=== PATIENT | female | born 1995 | race Caucasian/White ===

== ENCOUNTER 2022-08-08 05:56 | Inpatient (IN) | payer OTHER, MEDICAID, SELFPAY ==
[2022-08-08] VITALS (78 sets, daily range): BP systolic 76–113; BP diastolic 42–73; PULSE 70–127; RESP 16–18; TEMP 36.3–37.2; O2SAT 82–100; BMI 34.9
[2022-08-08 06:28] LABS: Basophil# 0.04 X10^3/uL; Basophil% 0.4 % (0-1); Eosinophil# 0.08 X10^3/uL; Eosinophils% 0.8 % (0-5); Hematocrit 38.6 % (37-47); Hemoglobin 12.2 g/dL (12.0-15.0); Lymphocyte % 21.7 % (19-41); Mean Corp Hgb Conc 31.6 g/dL (32-36); Mean Corpuscular Hgb 27.1 pg (27.0-32.0); Mean Corpuscular Volume 85.8 fL (81-99); Monocyte# 0.69 X10^3/uL; Monocyte% 6.8 % (0-10); NRBC Flagged by Analyzer 0 % (0-5); Neutrophil # 7.04 X10^3/uL (2.7-7.7); Neutrophil % 69.6 % (47-70); Platelet Count 203 K/mm3 (150-450); RBC Distribution Width SD 55.9 fl (35.1-43.9); White Blood Count 10.1 K/mm3 (4.4-11.0)
[2022-08-08] MEDS: Lactated Ringers 1,000 ML 50 ML IV (06:31)
[2022-08-08 07:00] LABS: Bedside Glucose 75 mg/dL (74-106)
[2022-08-08 07:00] LABS: Bedside Glucose 69 mg/dL (74-106)
[2022-08-08] MEDS: LACTATED RINGERS 500 ML 999 ML IV ×3 (07:20→09:28)
[2022-08-08 07:50] LABS: Bedside Glucose 85 mg/dL (74-106)
[2022-08-08 08:00] LABS: Syphilis Antibodies Non-reactive
--- NOTE | 2022-08-08 08:27 | HP.PCM.OB_ITS ---
HPI - General General Date of Admission: 08/08/22 HPI Narrative GENO DIGGS, is a 27 F at 39.2 weeks gestation who presents in spontaneous labor. Denies any loss of fluid or vaginal bleeding. Positive movement. complicated by GDM A1, Obesity and GBS positive. Maternal Data Information LUIS ANGEL Calculator Estimated Delivery Date Method Current WG Current Estimate 08/13/22 Manual 39w 2d PFSH PFS Medical History (Updated 08/08/22 @ 08:31 by Iveth Gonzalez CNM) Gestational diabetes Home Medications [id number]-mvz-[id number]-FA 1 mg tablet 1 tab PO 08/08/22 [History Last Taken 08/07/22 09:00 1 tab] Allergy/AdvReac Type Severity Reaction Status Date / Time No Known Allergies Allergy Verified 08/08/22 04:08 Social History Smoking Status: Never smoker History Elective abortions Hx Para 1 Spontaneous abortions Hx # Term Pregnancies Ectopic pregnancies Hx # Pregnancies Multiple births # of living children Visit Details OB Flowsheet Initial Weight: Not Recorded Date -?-?-?-?-?-?-?-?-?-?-?-?- EGA Weight BP Urine Prot -?-?-?-?-?-?-?-?-?-?-?-?- Glucose FHR FuHt Pres Dilation -?-?-?-?-?-?-?-?-?-?-?-?- Effaced St Visit Note 08/08/22 -?-?-?-?-?-?-?-?-?-?-?-?- 39w 2d 184 lb 12.8 oz 109/7 3 107/69 113/71 108/65 95/56 110/66 -?-?-?-?-?-?-?-?-?-?-?-?- -?-?-?-?-?-?-?-?-?-?-?-?- ROS Eyes Eyes: Denies blurry vision, change in vision or spots in vision ENT HEENT: Denies dizziness or headache(s) Cardiovascular Cardiovascular: Denies abdominal pain, chest pain or dyspnea Respiratory/Chest Respiratory/Chest: Denies cough, dyspnea, shortness of breath at rest or shortness of breath with exertion Gastrointestinal Gastrointestinal: Denies abdominal pain, diarrhea or vomiting Genitourinary Genitourinary: Denies change in urinary stream, difficulty urinating or dysuria Musculoskeletal Musculoskeletal: Reports none Integumentary Integumentary: Denies rash Neurologic Neurologic: Denies dizziness, headache(s), memory loss or weakness Psychiatric Psychiatric: Reports none Vital Signs Vital Signs Vital Signs: 08/08/22 04:05 08/08/22 04:05 08/08/22 04:05 Temperature Temperature Source Temporal Pulse Rate 94 Blood Pressure 109/73 BP Systolic 109 BP Diastolic 73 Pulse Ox 08/08/22 04:05 08/08/22 04:07 08/08/22 04:07 Temperature 97.6 F L Temperature Source Pulse Rate 85 Blood Pressure BP Systolic BP Diastolic Pulse Ox 94 08/08/22 06:07 08/08/22 06:07 08/08/22 07:21 Temperature 98.4 F Temperature Source Pulse Rate 72 Blood Pressure 107/69 BP Systolic 107 BP Diastolic 69 Pulse Ox 08/08/22 07:23 08/08/22 07:23 08/08/22 07:52 Temperature Temperature Source Pulse Rate 85 82 Blood Pressure 113/71 BP Systolic 113 BP Diastolic 71 Pulse Ox 08/08/22 07:52 08/08/22 07:57 08/08/22 07:57 Temperature Temperature Source Pulse Rate 79 Blood Pressure BP Systolic BP Diastolic Pulse Ox 97 99 08/08/22 07:59 08/08/22 07:59 08/08/22 08:02 Temperature Temperature Source Pulse Rate 86 96 Blood Pressure BP Systolic BP Diastolic Pulse Ox 91 08/08/22 08:02 08/08/22 08:07 08/08/22 08:07 Temperature Temperature Source Pulse Rate 80 Blood Pressure BP Systolic BP Diastolic Pulse Ox 99 100 08/08/22 08:12 08/08/22 08:12 08/08/22 08:17 Temperature Temperature Source Pulse Rate 87 88 Blood Pressure BP Systolic BP Diastolic Pulse Ox 97 08/08/22 08:17 08/08/22 08:22 08/08/22 08:22 Temperature Temperature Source Pulse Rate 99 Blood Pressure BP Systolic BP Diastolic Pulse Ox 99 100 08/08/22 08:26 08/08/22 08:26 Temperature Temperature Source Pulse Rate 100 Blood Pressure 108/65 BP Systolic 108 BP Diastolic 65 Pulse Ox Weight Weight: 184 lb 12.8 oz Body Mass Index (BMI) 34.9 Physical Exam Const alert, oriented x3 and no apparent distress General Appearance: cooperative Orientation / Consciousness: awake Exam Limitations: no limitations HEENT normocephalic Head and Scalp: normal to inspection Eyes General Eye: normal appearance of both eyes Neck full ROM and no lymphadenopathy Lymph Lymphatic: no lymphadenopathy noted Chest inspection of chest normal Resp normal respiratory effort, normal air movement and clear to auscultation bilaterally Effort and Inspection: able to speak in complete sentences and symmetric chest movement Cardio regular rate and regular rhythm GI normal to inspection, nondistended, normoactive bowel sounds Manual OB Exam: presentation cephalic Back/Spine normal ROM Extremity full ROM and no calf tenderness Skin no rashes or lesions noted General Skin Exam: no breakdown Neuro oriented x3 and CN's II-XII intact bilaterally Psych mental status grossly normal and thought process normal Labs Labs Labs: Blood Type A POSITIVE Antibody Screen NEGATIVE Hct 38.6 % (37-47) Hgb 12.2 g/dL (12.0-15.0) Syphilis Total Ab Non-reactive Assessment & Plan (1) 39 weeks gestation of : (2) Spontaneous onset of labor: (3) GDM (gestational diabetes mellitus), class A1: (4) Positive GBS test: PLAN: Plan Admit to labor and delivery Start IV and run fluids per orders Routine labs Start PCN 5 million units IV x1 now and then PCN 3 million units IV every 4 hours until delivery Activate GDM protocol Epidural when indicated Dr. Ibanez notified of admission and is collaborating physician
[2022-08-08] MEDS: fentaNYL-bupivacaine (epidural) 100 ML BAG EPIDURAL ×2 (08:30→13:15)
[2022-08-08] MEDS: Ondansetron 4 MG/2 ML Vial IV (08:40)
[2022-08-08 11:25] LABS: Bedside Glucose 70 mg/dL (74-106)
[2022-08-08 11:25] LABS: Bedside Glucose 73 mg/dL (74-106)
[2022-08-08] MEDS: Penicillin G 3,000,000 Units 50 ML 100 UNITS IV ×2 (11:30→15:56)
[2022-08-08 12:30] LABS: Bedside Glucose 87 mg/dL (74-106)
--- NOTE | 2022-08-08 12:32 | PCM.PN.BLA ---
Progress Note Patient seen at bedside. Comfortable with epidural anesthesia. Assessment & Plan Assessment/Plan (1) Positive GBS test: (2) Spontaneous onset of labor: (3) GDM (gestational diabetes mellitus), class A1: (4) 39 weeks gestation of : PLAN: Plan CE /-1 GBS positive- Patient has received 2 doses of PCN IV AROM for moderate amount of clear fluid IUPC placed without difficulty Start low dose pitocin IV at 2 mu/min and increase per policy Anticipate Dr. Ibanez updated
[2022-08-08] MEDS: Lactated Ringers 1,000 ML 200 ML IV (12:51)
[2022-08-08] MEDS: Oxytocin 15 Units/NS 250ml 15 UNITS/250 ML IV.SOLN 2 UNITS IV (13:04)
[2022-08-08 13:46] LABS: Bedside Glucose 73 mg/dL (74-106)
[2022-08-08 15:10] LABS: Bedside Glucose 53 mg/dL (74-106)
[2022-08-08 16:11] LABS: Bedside Glucose 74 mg/dL (74-106)
[2022-08-08 16:11] LABS: Bedside Glucose 78 mg/dL (74-106)
[2022-08-08 16:35] LABS: Bedside Glucose 74 mg/dL (74-106)
--- NOTE | 2022-08-08 17:08 | EX.PCM.OBRPT ---
Assessment & Plan (1) (spontaneous vaginal delivery): (2) Laceration, obstetrical, first degree: Maternal Data Information LUIS ANGEL Calculator Estimated Delivery Date Method Current WG Current Estimate 08/13/22 Manual 39w 2d Vaginal Delivery Maternal Presentation Maternal Presentation: - (Spontaneous onset of labor) Operative Information Date of Procedure: 08/08/22 Pre-Operative Diagnosis: Term gestation, spontaneous onset of labor Post-Operative Diagnosis: Same, live male infant Surgery / Procedure Performed: Spontaneous Vaginal Delivery Type of Anesthesia: Epidural Drain: Cheng to straight drain Estimated Blood Loss: 250 Time of Delivery: 16:48 Findings Description of Procedure: Called to patient's room for delivery. With minimal effort, head delivered followed immediately by anterior shoulder and remainder of infant body without traction. Vigorous male placed on maternal abdomen and attended to by nursing staff. Pitocin IV started for active management of the third stage of labor. 3 vessel cord clamped and cut after delay by FOB. placed immediately skin to skin. First degree laceration repaired in usual fashion with Vicryl 3-0 Rapid. Hemostasis obtained. EBL 250 cc. APGARS 9/9. and patient bonding well at this time. Dr. Ibanez on unit and notified of delivery. Presentation: Vertex Amniotic Membrane Rupture Type: Artificial Time of Membrane Rupture: 1214 Amniotic Fluid Description: Clear Placental Delivery Description: Spontaneous Placenta Disposition: [facility] Cord Vessel Description: 3 Vessels Cord Entanglement: None Nuchal Cord Compression: Without compression Infant A Gender: Male (1 minute): 9 (5 minute): 9 Delayed Cord Clamping: Yes Post Vaginal Delivery Medications Given After Delivery: IV Pitocin Episiotomy Description: None Laceration: 1st degree Complication Complications: None
[2022-08-08] MEDS: Oxytocin 15 Units/NS 250ml 15 UNITS/250 ML IV.SOLN 83 UNITS IV (17:21)
[2022-08-08 18:45] LABS: Bedside Glucose 68 mg/dL (74-106)
[2022-08-08] MEDS: 0.9% Saline Lock 10 ML Syringe IV (20:47)
[2022-08-09] MEDS: Benzocaine/Lanolin/Aloe Vera 1 SPRAY EACH TOPICAL (01:23)
[2022-08-09] MEDS: Ibuprofen 600 MG Tablet PO ×2 (01:23→12:19)
[2022-08-09 04:50] VITALS: BP 104/67; PULSE 78; RESP 16; TEMP 36.6
[2022-08-09 06:40] LABS: Bedside Glucose 89 mg/dL (74-106)
[2022-08-09 08:35] VITALS: BP 101/63; PULSE 76; RESP 16; TEMP 36.8; O2SAT 97
[2022-08-09 11:47] VITALS: BP 100/45; PULSE 64; RESP 16; TEMP 36.6; O2SAT 98
--- NOTE | 2022-08-09 13:04 | PCM.PN.OB ---
Subjective Subjective Denies complaints Objective Data Objective Data Vital Signs: Vital Signs Temp Pulse Resp BP Pulse Ox O2 Del Method 97.9 F 64 16 100/45 L 98 Room Air 08/09/22 11:47 08/09/22 11:47 08/09/22 11:47 08/09/22 11:47 08/09/22 11:47 08/09/22 11:47 Oxygen Delivery Method Room Air Weight: 184 lb 12.8 oz Body Mass Index (BMI) 34.9 Intake & Output: Intake and Output for Last 24 Hours 08/07/22 08/08/22 08/09/22 23:59 23:59 23:59 Intake Total 4705.67 / 4705.67 Output Total 1950 / 1950 950 / 950 Balance 2755.67 / 2755.67 -950 / -950 Lab / Micro Data Result Diagrams: 08/08/22 06:20 Labs: Laboratory Results - last 24 hr 08/08/22 13:13: POC Glucose 73 L 08/08/22 14:05: POC Glucose 53 L 08/08/22 14:30: POC Glucose 74 08/08/22 14:44: POC Glucose 78 08/08/22 15:54: POC Glucose 74 08/08/22 18:22: POC Glucose 68 L 08/09/22 06:18: POC Glucose 89 Physical Exam Const alert, oriented x3 and no apparent distress HEENT normocephalic GI soft to palpation, non-tender and non-distended GI Narrative: fundus firm, mid & below umbilicus Extremity normal to inspection and no calf tenderness Assessment & Plan (1) (spontaneous vaginal delivery): COMMENT: PPD#1 PLAN: D/c home per patient request GDM - FBS normal today
--- NOTE | 2022-08-09 13:06 | DCINST_ITS ---
Discharge Instructions Diet Discharge Diet: No restrictions Activity Discharge Activity: May Shower May resume sexual activity in: 6 weeks Weight Bearing Status: Weight bearing as tolerated Dressing / Incision Call your doctor if you observe: Fever of 101 or Higher, Coldness, Increased Pain, Change in Color, Inability to urinate, Inability to have a bowel movement, Using more than 1 pad per hour, Shortness of breath, Dizziness, Fainting spells, Chest pain, Increased palpitations (irregular heartbeat), Calf discomfort and Uncontrolled pain Follow Up Care Please Follow Up With: Iveth Gonzalez CNM When: Follow up in 2 and 6 weeks for visits. Test Results: Test results from this visit will be discussed in further detail at your follow- up appointment, if applicable. Discharge Plan Admission Admit Date/Time: 08/08/22 05:56 Primary Reason for Your Visit: Vaginal delivery Attending Provider: Iveth Gonzalez Primary Care Provider: Care Physician,No Primary Discharge Orders/Prescriptions Prescriptions: New acetaminophen 500 mg Tablet 1,000 mg PO Q6H PRN PRN (Reason: Pain 1-10 Or Fever) Qty: 0 0RF ibuprofen 600 mg Tablet 600 mg PO Q6H PRN PRN (Reason: pain) Qty: 0 0RF Continued clxfhmgw-icx-Mx-FA 1 mg Tablet 1 tab PO Referrals / Follow Up: Care Physician,No Primary [Primary Care Provider] - Disposition Disposition (needs filled in before D/C Order can be placed): Home, Self Care
[2022-08-09 15:48] VITALS: BP 93/57; PULSE 63; RESP 16; TEMP 36.7; O2SAT 97
--- NOTE | 2022-08-09 19:39 | CASEMGMT ---
Social Work Brief Assessment Labor and Delivery Unit Patient Address: [address] [place] [address] Phone number: [phone] Date of Referral/Notification: 08/09/2022 Time of Referral: [phone] Referred By: Iveth Gonzalez CNM Date of Intervention: 08/09/2022 Time of Intervention: 173 Reason for Referral: Maternal history of depression Informant: Medical record and mother of baby (MOB) Amie Shannon; father of baby (FOB) Dillon Shannon present. History: MARYANNE is a 27-year-old female, to the FOB Dillon Shannon who is 22 years old. Parents are recently but have been together for 5 years. FOB works at a [employer] and MOB works at [employer]. MOB and FOB now have 2 children together a 2-year-old named Geraldine and baby Dameon (08/08/2022). Carlos's weight was 3575 g. Apgars 9 and 9 at 1 and 5 minutes of life respectively. MARYANNE is 2, para 1 now 2. care adequate starting at 8 weeks. Record indicates history of gestational diabetes. No reports of any type of learning issues. MOB and FOB both deny any type of substance use issues. MOB previously denied any type of safety concerns or domestic violence. No indication during social work visit. Maternal history of depression and anxiety. MOB reports this was about 10 years ago prior to becoming involved with the FOB. Denies any history of depression or anxiety. No reported history of any legal concerns or history of children services. Assessment: Met with MOB and FOB in room, introducing to self and social work role. MOB and FOB polite and cooperative. Observed FOB attending to the infant and caring for the appropriately. MOB held the baby as well and was appropriate. Parents report to have stable housing, no concerns with utilities, no concerns with the home environment. Reports had adequate transportation. Reported to have good support from the MOB's parents and the FOB sister. FOB gets to be off work for a week to help with the transition home. Deny any need for assistance for services such as WIC. Declined referrals to helping grow. Denies any concerns with home-going. There have been no voiced concerns regarding parent-child interactions or bonding. MOB held good eye contact, bright affect, in no outward signs noted of depression. MOB voiced that if depression would arise would be willing to seek out counseling if necessary. Educated to mood and anxiety disorders, and that both mothers and fathers can be at risk for this. Provided written material on this topic for home-going. Plan: MOB and will discharge home when ready. Resources provided on mood and anxiety disorders. No further needs requested or indicated. -TOREY Katz, CHEMA *This note was generated with [employer] dictation software. It may contain incorrect words, spelling, and punctuation that were not noted in review of the chart prior to signing*
== END 2022-08-09 17:55 | disposition home or self-care (01) | DRG 807 ==
LOC: WPOUT 06:06 → WP 06:06
PROVIDERS: Obstetrics & Gynecology; Admitting Provider Advanced Practice Midwife; Referring Provider Advanced Practice Midwife; Visit Provider Advanced Practice Midwife
DX: O24.420 Gestational diabetes mellitus in childbirth, diet controlled (principal); Z37.0 Single live birth; O70.0 First degree perineal laceration during delivery; O99.214 Obesity complicating childbirth; O99.824 Streptococcus B carrier state complicating childbirth; Z3A.39 39 weeks gestation of pregnancy
CPT/HCPCS: 59025; 59050; 82962; 85025; 86780; 86850; 86900; 86901; 99221; J7120; A4216; G0378; J2405

== ENCOUNTER 2022-09-13 05:43 | Day surgery (SDC) | payer OTHER, MEDICAID, SELFPAY ==
--- NOTE | 2022-09-09 16:53 | PCM.HP.BLA ---
History and Physical Date of Admission: 09/13/22 Pre-Op History and Physical ? HPI: The patient is a 27 year old female presenting for pre-operative visit. She is scheduled for laparoscopic bilateral salpingectomy, for desires sterilization on September 13, 2022. Procedure discussed along with risks, benefits and complications. Other alternatives discussed for management. Consent form signed? Yes. ? ? PAST MEDICAL HISTORY PAST MEDICAL HISTORY Diagnosis Date ? Anemia ? ? Depression 2018 ? ? PAST SURGICAL HISTORY PAST SURGICAL HISTORY Procedure Laterality Date ? TONSILLECTOMY AND ADENOIDECTOMY HX ? 2018 ? ? ? CURRENT MEDICATIONS Current Outpatient Medications Medication Sig Dispense Refill ? [id number]-mwv-ncu-yydt oil ( GUMMY) 400 mcg-35 mg -25 mg-5 mg chew Take 1 Each by mouth once daily. 30 tablet 11 ? blood sugar diagnostic test strip 1 Strip four times daily. Use as instructed 120 Strip 9 ? Lancets lancets 1 Each four times daily. Use as instructed 120 Each 9 ? No current facility-administered medications for this visit. ? ? ALLERGIES: Patient has no known allergies. ? PERSONAL HISTORY: SOCIAL HISTORY Social History ? Tobacco Use ? Smoking status: Never ? Smokeless tobacco: Never Vaping Use ? Vaping Use: Never used Substance Use Topics ? Alcohol use: Not Currently ? ? Comment: occasional ? Drug use: Never ? FAMILY HISTORY: FAMILY HISTORY FAMILY HISTORY Problem Relation Age of Onset ? Diabetes Mother ? ? Hypertension Father ? ? other (ovarian cyst) Sister ? ? other (endometriosis) Sister ? ? No Known Problems Brother ? ? Osteoporosis Maternal Grandmother ? ? Alzheimer's Disease Maternal Grandfather ? ? Stroke Maternal Grandfather ? ? Hypertension Paternal Grandmother ? ? Pancreatic Cancer Paternal Grandfather ? ? ? REVIEW OF SYMPTOMS: negative except as noted above PHYSICAL EXAMINATION: ? VITALS: Blood pressure 100/64, pulse 64, height 5' 1 (1.549 m), weight 166 lb 6.4 oz (75.5 kg), last menstrual period 11/06/2021, not currently . ? GENERAL: The patient is well nourished, well hydrated in no acute distress. , The patient is oriented to time, place, and person. NECK: Supple. No lynphadenopathy, normal thyroid, no thyromegaly. LUNGS: Clear to auscultation bilaterally. no wheezes, rhonchi or rales HEART: Regular rate and rhythm, Normal heart sounds, and No murmurs or gallops GENITALIA: Normal external genitalia, Urethral meatus normal, Bladder nontender, normal vagina and normal vaginal tone, normal cervix, normal uterus, size and consistency, normal adnexa without masses or tenderness, and perineum WNL ? IMPRESSION: that desires permanent sterilization. ? PLAN: Laparoscopic bilateral salpingectomy ? Pt has been counseled on risks/benefits and alternatives of surgery including but not limited to anesthesia, bleeding, infection, injury to pelvic structures including bowel, bladder, ureters and vessels. Pt wishes to proceed with surgery at this time. ? Pre and post op instructions reviewed. ? We reviewed that this is permanent and that once this procedure is complete she would have to undergo reproductive assistance if she ever desired future fertility. Patient understands this and wants to proceed with surgical procedure. Risk of regret understood. ? I have reviewed and updated past medical and surgical history, medications and allergies Raya Ibanez MD ?3:31 PM Office Visit on 08/26/2022 Office Visit on 08/26/2022 Note shared with patient
[2022-09-13 06:28] VITALS: BP 123/71; PULSE 65; RESP 14; TEMP 36.5; O2SAT 98; BMI 32.5
[2022-09-13 06:30] LABS: Internal QC Validated? YES +Cl - CLEAR BKGD; Pregnancy, Urine Negative Negative
[2022-09-13] MEDS: Lactated Ringers 1,000 ML 15 ML IV (06:39)
--- NOTE | 2022-09-13 07:30 | FALS_PTH ---
PATIENT: GENO DIGGS LOC: [facility] – [place] U#:[id number] AGE/SX: 27/F ROOM: RE09/13/[address]: Dr. Raya Nunez, MDDOB: 1995 BED: DIS: 09/13/2022 SPEC #: [id number] RECD: 09/13/22 12:36 STATUS: DEVEN SAMMY #: [id number] SABI: 09/13/22 07:[address]: Raya Nunez DEPT: SURGICAL PATHOLOGY RECD BY: Lizbeth Mckenna ENTERED: 09/13/22 12:53 SP TYPE: FALL TUBES OTHR DR: No Primary Care Phys Tissues: Fallopian tube Procedures: Surgery Specimen Level II HEADER OPERATION: Laparoscopic salpingectomy PRE-OP DIAGNOSIS: Sterilization TISSUE SUBMITTED: Bilateral fallopian tubes MICROSCOPIC DIAGNOSIS Bilateral fallopian tubes, salpingectomy: Bilateral fallopian tubes, no pathologic diagnosis. SJ:[id number] 09/16/2022 MICROSCOPIC DESCRIPTION Slides are reviewed. GROSS DESCRIPTION Received in fixative is one container labeled with the patient's name and designated bilateral fallopian tubes. The specimen consists of bilateral fallopian tubes including fimbrial ends measuring 6.5 cm in length and 0.5 cm in diameter and 5.5 cm in length and 0.5 cm in diameter. The fallopian tubes are not identified as right or left. Sections reveal unremarkable cut surfaces. Kier Pleater sections are submitted in two cassettes with each cassette containing one fallopian tube. / Tanja 09/13/2022 TC:4 CPT: 36151 x2
[2022-09-13] MEDS: Bupivacaine Mpf 0.5% 30 ML VIAL (07:50)
--- NOTE | 2022-09-13 08:05 | OP.PCM_ITS ---
Report of Operation Date of Procedure: 09/13/22 Pre-Operative Diagnosis: sterilization request Post-Operative Diagnosis: same Surgery/Procedure Performed:: laparoscopic bilateral salpingectomy Description of Surgical Findings:: normal tubes and ovaries bilaterally Surgeon: Raya Nunez mine equipment design engineer: None Type of Anesthesia: General and Local Special Medications: 0.5% marcaine Specimen's removed: bilateral fallopian tubes Drains: none Estimated Blood Loss (mL): <5cc Fluids Replaced: 800cc Description of Procedure: After informed consent was obtained patient was taken to the operating room she was placed in supine position she was given anesthesia. She was then placed in the [facility] stirrups and she was prepped and draped in normal sterile fashion. At this time attention was turned to the vaginal portion where weighted speculum placed at posterior fornix vagina single-tooth tenaculum was used to gently grasp the internal the cervix. uterus was gently sounded to approximately 8cm. Uterine manipulator was placed without difficulty. Legs then placed in parallel with the abdomen the tenaculum and the weighted speculum were removed. 2 towel clamps were placed at level of umbilicus. Marcaine was injected infraumbilical and a small incision was made. The 5 mm trocar was placed under direct visualization. CO2 gas was used to insufflate the intra- abdominal cavity. Upon inspection no gross abnormalities appreciated- the uterus tubes and ovaries appeared to be normal. At this time then the LLQ and RLQ ports were placed First Marcaine was injected and small incision was made a knife and the 5 mm trocars were placed. At this time then tubes were traced back to the fimbriated ends. Enseal was used to coagulate and ligate along mesosalpinx bilaterally until tubes removed completely. Good hemostasis was appreciated. At this time procedure was deemed complete successful. The gas was desufflated on from the intra-abdominal cavity. The trochars were removed. Skin was closed using 4-0 Monocryl in a subcutaneous fashion. Dermabond glue was placed. Instrument lap and needle counts were correct ?2. The uterine manipulator was removed. Vaginal sweep was performed it was negative. There were no complications anticipated normal postoperative course for this patient. Grafts/Implants Used: none Procedure Start Time: 07:45 Procedure Stop Time: 08:03 Complications none Admit VTE Documentation VTE Present on Admission: Yes VTE Mechan Device Prophylaxis: SCD's VTE Pharm Prophylaxis ordered?: No Reason prophylaxis not ordered:: Procedure Not Indicated
--- NOTE | 2022-09-13 08:08 | DCINST_ITS ---
Discharge Instructions Procedure Other Diet Discharge Diet: No restrictions Activity May resume sexual activity in: 2 weeks Lifting Restrictions: 20-25 lbs Dressing / Incision Call your doctor if your incision/area has: Continuous Slow Oozing, Sudden Increased Bleeding, Increased Pain/ Swelling, Increased Redness, Foul Smelling Discharge and Swelling at the incision site Call your doctor if you observe: Fever of 101 or Higher, Inability to urinate, Inability to have a bowel movement, Using more than 1 pad per hour and Uncontrolled pain Additional Dressing/Incision Instructions:: You have skin glue over your incision sites, do not pick off. You may shower and let the soap and water run over the incision sites and dab dry. Follow Up Care Please Follow Up With: Raya Nunez MD When: 1-2 weeks post OP if you need an appointment please call [phone] Test Results: Test results from this visit will be discussed in further detail at your follow- up appointment, if applicable. Discharge Plan Admission Attending Provider: Raya Nunez Primary Care Provider: Care Physician,Rosalba Primary Discharge Orders/Prescriptions Prescriptions: No Action NK Referrals / Follow Up: Care Physician,No Primary [Primary Care Provider] - Disposition Disposition (needs filled in before D/C Order can be placed): Home, Self Care
[2022-09-13 08:15] VITALS: BP 123/71; BP 98/61; PULSE 57; RESP 16; TEMP 36.2; O2SAT 100
[2022-09-13 08:30] VITALS: BP 102/67; BP 123/71; PULSE 56; RESP 16; O2SAT 100
[2022-09-13 08:50] VITALS: BP 101/68; BP 123/71; PULSE 54; RESP 16; TEMP 36.3; O2SAT 100
[2022-09-13 09:25] VITALS: BP 123/71
== END 2022-09-13 09:38 | disposition home or self-care (01) ==
LOC: SDC 05:44 → AC 05:44
PROVIDERS: Referring Provider Obstetrics & Gynecology; Visit Provider Obstetrics & Gynecology
PROC: (CPT 58661; principal; 2022-09-13 07:15)
DX: Z30.2 Encounter for sterilization (principal)
CPT/HCPCS: 58661; 00840; 81025; 88302; J7120; J2405